=== PATIENT | female | born 1995 | race Caucasian/White ===

== ENCOUNTER 2017-10-07 10:09 | Emergency (ER) | payer SELFPAY ==
[~2017-10-07] VITALS: Ht 170.2 cm; Wt 54.5 kg
[2017-10-07 10:25] VITALS: BP 132/87; TEMP 97.9
[2017-10-07 12:28] LABS: BASO % 0.7 % (0.0-2.0); EOS % 0.7 % (0-4.0); GRAN # 3.4 (1.4-6.5); GRAN % 57.2 % (42.2-75.2); HEMATOCRIT 39.2 % (37.0-47.0); HEMOGLOBIN 13.1 g/dl (12.5-16.0); LYMPH # 1.6 (1.2-3.4); LYMPH % 27.6 % (20.0-51.0); MEAN CELL VOLUME 91 fl (80.0-100.0); MEAN CORPUSCULAR HEMOGLOBIN 30 pg (27.0-31.0); MEAN CORPUSCULAR HGB CONC 33 g/dl (33.0-37.0); MEAN PLATELET VOLUME 9.8 fl (7.4-10.4); MONO # 0.8 (0.1-0.6); MONO % 13.8 % (1.7-9.3); PLATELET COUNT 219 K/mm3 (130-400); RED BLOOD COUNT 4.31 M/mm3 (4.10-5.30); REDCELL DISTRIBUTION WIDTH-CV 12.8 % (11.5-14.5)
[2017-10-07 12:29] LABS: ALBUMIN 4.3 gm/dL (3.5-5.0); BILIRUBIN,TOTAL 0.3 mg/dL (0.0-1.0); CALCIUM 9.2 mg/dL (8.4-10.2); CREATININE, serum 0.69 mg/dL (0.52-1.25); POTASSIUM 4.4 mmol/L (3.4-5.0); TOTAL PROTEIN 7.3 gm/dL (6.4-8.2)
[2017-10-07 14:18] LABS: COLLECTION METHOD CLEAN CATCH
[2017-10-07 14:24] LABS: MUCOUS Present /lpf; PH 6 (5-8); SQUAMOUS EPITHELIAL 0-2 /hpf; URINE APPEARANCE Hazy; URINE BACTERIA None Seen /hpf; URINE BILIRUBIN Negative (NEGATIVE); URINE BLOOD Negative (NEGATIVE); URINE COLOR Yellow; URINE GLUCOSE Negative (NEGATIVE); URINE KETONE Trace (NEGATIVE); URINE LEUKOCYTE ESTERASE Negative (NEGATIVE); URINE NITRATE Negative (NEGATIVE); URINE PROTEIN(semi-quant) Negative (NEGATIVE); URINE RBC 0-2 /hpf; URINE UROBILINOGEN Negative (NEGATIVE)
[2017-10-07] MEDS ORDERED: ZOFRAN ODT4 MG PO (14:37)
[2017-10-07] MEDS ORDERED: DOXYCYCLINE 10100 MG PO (14:37)
[2017-10-07 15:33] VITALS: PULSE 70
== END 2017-10-07 15:36 | disposition home or self-care (01) ==
LOC: COL.ER 10:09
PROVIDERS: Physician Assistant
DX: N73.9 Female pelvic inflammatory disease, unspecified (principal); R59.1 Generalized enlarged lymph nodes
CPT/HCPCS: J0696; J2405; J7030

== ENCOUNTER 2018-07-14 08:18 | Emergency (ER) | payer SELFPAY ==
[~2018-07-14] VITALS: Ht 170.2 cm; Wt 56.2 kg
[~2018-07-14 08:18] MED LIST: DOXYCYCLINE 10100 MG PO; ZOFRAN ODT4 MG PO
[2018-07-14 09:22] LABS: COLLECTION METHOD CLEAN CATCH
[2018-07-14 09:25] LABS: BASO # 0.1 (0.0-0.2); EOS # 0.1 (0.0-0.7); EOS % 1.6 % (0-4.0); GRAN % 48.8 % (42.2-75.2); HEMATOCRIT 39.5 % (37.0-47.0); HEMOGLOBIN 13.2 g/dl (12.5-16.0); LYMPH # 2.4 (1.2-3.4); LYMPH % 38.5 % (20.0-51.0); MEAN CELL VOLUME 89 fl (80.0-100.0); MEAN CORPUSCULAR HEMOGLOBIN 30 pg (27.0-31.0); MEAN CORPUSCULAR HGB CONC 33 g/dl (33.0-37.0); MEAN PLATELET VOLUME 9.9 fl (7.4-10.4); MONO # 0.6 (0.1-0.6); MONO % 9.8 % (1.7-9.3); PLATELET COUNT 225 K/mm3 (130-400); RED BLOOD COUNT 4.46 M/mm3 (4.10-5.30); REDCELL DISTRIBUTION WIDTH-CV 12.7 % (11.5-14.5)
[2018-07-14 09:29] LABS: MUCOUS Present /lpf; PH 7 (5-8); URINE APPEARANCE Hazy; URINE BACTERIA Rare /hpf; URINE BILIRUBIN Negative (NEGATIVE); URINE BLOOD Negative (NEGATIVE); URINE COLOR Yellow; URINE GLUCOSE Negative (NEGATIVE); URINE KETONE Negative (NEGATIVE); URINE LEUKOCYTE ESTERASE Negative (NEGATIVE); URINE NITRATE Negative (NEGATIVE); URINE PROTEIN(semi-quant) Negative (NEGATIVE); URINE RBC 0-2 /hpf; URINE UROBILINOGEN Negative (NEGATIVE)
[2018-07-14 09:38] LABS: ALANINE AMINOTRANSFERASE 26 U/L (9-52); ALBUMIN 4.4 gm/dL (3.5-5.0); ALKALINE PHOSPHATASE 46 U/L (50-136); ANION GAP 4 mmol/L (7-16); AST,SGOT 26 U/L (15-37); BILIRUBIN,TOTAL 0.6 mg/dL (0.0-1.0); BLOOD UREA NITROGEN 12 mg/dL (7-17); CALCIUM 9.4 mg/dL (8.4-10.2); CARBON DIOXIDE 29 mmol/L (22-30); CHLORIDE 105 mmol/L (98-107); CREATININE, serum 0.66 mg/dL (0.52-1.25); GLUCOSE 92 mg/dL (74-106); POTASSIUM 4.1 mmol/L (3.4-5.0); SODIUM 138 mmol/L (137-145); TOTAL PROTEIN 7.5 gm/dL (6.4-8.2)
[2018-07-14 09:40] LABS: C-REACTIVE PROTEIN < 0.5 mg/dL (0.0-0.9)
[2018-07-14] MEDS ORDERED: NORCO 325 MG-51 TAB PO (12:29)
[2018-07-14 12:39] VITALS: BP 106/61; PULSE 45; TEMP 97.9
== END 2018-07-14 12:39 | disposition home or self-care (01) ==
LOC: COL.ER 08:18
PROVIDERS: Physician Assistant
DX: N83.201 Unspecified ovarian cyst, right side (principal); Z88.1 Allergy status to other antibiotic agents
CPT/HCPCS: J1170; J1885; J2405; J7030; Q9967

== ENCOUNTER 2018-10-13 14:19 | Emergency (ER) | payer SELFPAY ==
[~2018-10-13] VITALS: Ht 170.2 cm; Wt 52.3 kg
[~2018-10-13 14:19] MED LIST changes: +NORCO 325 MG-51 TAB PO
[2018-10-13 14:30] VITALS: BP 136/83; PULSE 64; TEMP 97.9
== END 2018-10-13 15:50 | disposition left against medical advice (07) ==
LOC: COL.ER 14:19
DX: R10.9 Unspecified abdominal pain (principal); R14.0 Abdominal distension (gaseous)

== ENCOUNTER 2018-10-19 14:33 | Emergency (ER) | payer SELFPAY ==
[~2018-10-19] VITALS: Ht 170.2 cm; Wt 55.1 kg
[2018-10-19 14:39] VITALS: TEMP 98.1
[2018-10-19 15:59] LABS: COLLECTION METHOD CATHETER
[2018-10-19 16:09] LABS: MUCOUS Present /lpf; PH 5 (5-8); URINE APPEARANCE Clear; URINE BACTERIA None Seen /hpf; URINE BILIRUBIN Negative (NEGATIVE); URINE BLOOD Negative (NEGATIVE); URINE COLOR Yellow; URINE GLUCOSE Negative (NEGATIVE); URINE KETONE Negative (NEGATIVE); URINE LEUKOCYTE ESTERASE Negative (NEGATIVE); URINE NITRATE Negative (NEGATIVE); URINE PROTEIN(semi-quant) Negative (NEGATIVE); URINE RBC 0-2 /hpf; URINE UROBILINOGEN Negative (NEGATIVE)
[2018-10-19 17:09] VITALS: BP 118/72; PULSE 47
== END 2018-10-19 17:11 | disposition home or self-care (01) ==
LOC: COL.ER 14:33
PROVIDERS: Nurse Practitioner
DX: N94.6 Dysmenorrhea, unspecified (principal); Z88.1 Allergy status to other antibiotic agents; Z87.42 Personal history of other diseases of the female genital tract

== ENCOUNTER 2019-03-20 13:59 | Emergency (ER) | payer OTHER ==
[~2019-03-20] VITALS: Ht 170.2 cm; Wt 56.8 kg
[2019-03-20 14:03] VITALS: BP 140/77; PULSE 77; TEMP 98.5
[2019-03-20] MEDS ORDERED: CLEOCIN HCL300 MG PO (14:22)
[2019-03-20] MEDS ORDERED: NORCO 325 MG-51 TAB PO ×2 (14:22→14:25)
[2019-03-20] MEDS ORDERED: DIFLUCAN 100MG100 MG PO ×3 (14:25→14:46)
== END 2019-03-20 14:45 | disposition home or self-care (01) ==
LOC: COL.ER 13:59
DX: K03.81 Cracked tooth (principal); B37.3 Candidiasis of vulva and vagina; F17.210 Nicotine dependence, cigarettes, uncomplicated